=== PATIENT | female | born 1955 | race Caucasian/White ===

== ENCOUNTER → 2021-04-30 | Outpatient (CLI) | payer MEDICARE, BC ==
--- NOTE | 2021-04-30 14:31 | BD ---
EXAMINATION TYPE: Axial Bone Density DATE OF EXAM: 04/30/2021 COMPARISON: 11/08/2012 CLINICAL HISTORY: Height: 59.5 IN Weight: 126 LBS RISK FACTORS HISTORY OF: Family History of Osteoporosis: YES MOTHER Active: YES Postmenopausal woman: AGE 50 Take estrogen and/or progesterone medications: NOT NOW How long: TOOK CONTROL FOR 5 YEARS MEDICATIONS: Additional Medications: STATIN MEDS, LOPRESSOR, METOPROLOL, HCTZ, Additional History: BREAST CANCER WITH RADIATION WITH RADIATION EXAM MEASUREMENTS: Bone mineral densitometry was performed using the [employer]. Bone mineral density as measured about the Lumbar spine is: ----- L1-L4(G/cm2): 1.140 T Score Values are as follows: ----- L2: -0.1 ----- L3: -0.2 ----- L4: -1.3 ----- L1-L4: -0.3 Bone mineral density has: Decreased -3.0% since study of: 11/08/2012 Bone mineral density about the R hip (g/cm2): 1.010 Bone mineral density about the L hip (g/cm2): 1.005 T Score values are as follows: -----R Neck: -0.2 -----L Neck: -0.2 -----R Total: 0.3 -----L Total: 0.4 Bone mineral density has: Decreased -4.9% since study of: 11/08/2012 IMPRESSION: No evidence for osteoporosis or osteopenia NOTE: T-SCORE=SD OF THE YOUNG ADULT MEAN.
== END | disposition home or self-care (01) ==
LOC: RADBDWWP 12:57
PROVIDERS: ATTEND Internal Medicine Hematology & Oncology
DX: C50.912 Malignant neoplasm of unspecified site of left female breast (principal)
CPT/HCPCS: 77080

== ENCOUNTER → 2022-09-09 | Outpatient (CLI) | payer MEDICARE, BC ==
[2022-09-09 13:56] LABS: African American GFR (CKD) >90 (>60 ml/min/1.73 sqM); Blood Urea Nitrogen 19 mg/dL (7-17); Non-African American GFR(CKD) >90 (>60 ml/min/1.73 sqM)
--- NOTE | 2022-09-09 16:20 | CT ---
EXAMINATION TYPE: CT facial bones w con DATE OF EXAM: 09/09/2022 COMPARISON: None HISTORY: 67-year-old female M26.601, right TMJ disorder, H92.01 right ear pain. TECHNIQUE: Contiguous axial scanning of the facial bones performed with IV Contrast, patient injected with 100 mL of Isovue 300. Coronal reconstructions performed. CT DLP: 556.9 mGycm Automated exposure control for dose reduction was used. FINDINGS: Some asymmetric prominent right arytenoid cartilage calcifications noted. Rightward nasal septal deviation. Trace mucosal thickening floors of the maxillary sinuses and also involving the bilateral ethmoid air cells. Frontal and sphenoid sinuses are well pneumatized. No air-fluid levels. No acute fracture of the facial bones. Orbits and globes are intact. The osteomeatal complexes are patent. There is mild degenerative change of the bilateral TMJs that appears relatively symmetric from side t o side. No subluxation or dislocation is seen. Visualized mastoid air cells are pneumatized. IMPRESSION: 1. RELATIVELY SYMMETRIC MILD BILATERAL TMJ OA. 2. 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 3. SLIGHT RIGHTWARD NASAL SEPTAL DEVIATION.
== END | disposition home or self-care (01) ==
LOC: RADCTMAIN 13:10
PROVIDERS: ATTEND Otolaryngology
DX: J34.2 Deviated nasal septum (principal); M26.601 Right temporomandibular joint disorder, unspecified; H92.01 Otalgia, right ear
CPT/HCPCS: 82565; 84520; 70487; 36415; Q9967

== ENCOUNTER 2024-08-21 13:16 | Emergency (ER) | payer BC, MEDICARE, OTHER ==
[2024-08-21 13:26] VITALS: RESP 18; TEMP 97.9
--- NOTE | 2024-08-21 13:44 | ED ---
Fall HPI - General Chief Complaint: Fall Stated Complaint: Fall Time Seen by Provider: 08/21/24 13:20 Source: patient, EMS, RN notes reviewed Mode of arrival: EMS Limitations: no limitations - History of Present Illness Initial Comments: This is a 69-year-old female who presents to the emergency department for a fall. Patient tripped on her shoes at work and fell, hitting the left side of her head and hurting her left arm. She has since had severe pain over the left shoulder has a bleeding wound to the left side of her head. Denies any loss of consciousness. Not taking any blood thinners. Tetanus vaccine is up-to-date. MD Complaint: fall - Related Data Previous Rx's Medication Instructions Recorded Ketorolac [Toradol] 10 mg PO Q6HR PRN #15 tab 08/21/24 methocarbamoL [Robaxin-750] 1,500 mg PO TID PRN #30 tab 08/21/24 Allergies Allergy/AdvReac Type Severity Reaction Status Date / Time bacitracin Allergy Anaphylaxis Verified 08/21/24 13:24 [From Neosporin ([id number])] codeine Allergy Rash/Hives Verified 08/21/24 13:24 neomycin Allergy Anaphylaxis Verified 08/21/24 13:24 [From Neosporin ([id number])] Penicillins Allergy Rash/Hives Verified 08/21/24 13:24 polymyxin B Allergy Anaphylaxis Verified 08/21/24 13:24 [From Neosporin ([id number])] Sulfa (Sulfonamide Allergy Rash/Hives Verified 08/21/24 13:24 Antibiotics) Review of Systems ROS Statement: Those systems with pertinent positive or pertinent negative responses have been documented in the HPI. ROS Other: All systems not noted in ROS Statement are negative. Past Medical History Additional Past Medical History / Comment(s): Meniere's disease History of Any Multi-Drug Resistant Organisms: None Reported Additional Past Surgical History / Comment(s): Double mastectomy, fallopian tube and ovary removed on L side Past Psychological History: No Psychological Hx Reported Smoking Status: Never smoker Past Alcohol Use History: Occasional Past Drug Use History: None Reported General Exam Limitations: no limitations General appearance: alert, in no apparent distress Head exam: Present: other (Laceration to the left side of her head with mild active bleeding) Eye exam: Present: normal appearance, PERRL, EOMI. Absent: scleral icterus, conjunctival injection, periorbital swelling Respiratory exam: Present: normal lung sounds bilaterally. Absent: respiratory distress, wheezes, rales, rhonchi, stridor Cardiovascular Exam: Present: regular rate, normal rhythm, normal heart sounds. Absent: systolic murmur, diastolic murmur, rubs, gallop, clicks Extremities exam: Present: other (Tenderness to palpation over the left shoulder. Range of motion limited by pain. 2+ radial pulses.) Neurological exam: Present: alert, oriented X3, CN II-XII intact Psychiatric exam: Present: normal affect, normal mood Skin exam: Present: warm, dry, intact, normal color. Absent: rash Course Vital Signs 08/21/24 08/21/24 13:17 16:55 Temperature 97.9 F 97.9 F Pulse Rate 81 64 Respiratory 18 18 Rate Blood Pressure 136/80 113/68 O2 Sat by Pulse 100 97 Oximetry Procedures - Laceration Laceration #1 Consent Obtained: verbal consent Indication: laceration Site: scalp Size (cm): 3 Description: linear Depth: simple, single layer Size of Sutures: other (Chris) Number of Sutures: 3 Medical Decision Making - Medical Decision Making This is a 69 year old female who presents to the emergency department for a fall. Was pt. sent in by a medical professional or institution? @ -No Did you speak to anyone other than the patient for history? @ -No Did you review nursing and triage notes? @ -Yes, and I agree, it is accurate with regards to the patient's symptoms. Were old charts reviewed? @ -No Differential Diagnosis? @ -Differential Diagnosis Head Injury: Contusion, hematoma, intracranial hemorrhage, skull fracture, whiplash, concussion, this is not meant to be an all-inclusive list. EKG interpreted by me (3pts min.)? @ -Not obtained X-rays interpreted by me (1pt min.)? @ -X-ray of the left shoulder and humerus obtained. My interpretation identifies no acute fractures. CT interpreted by me (1pt min.)? @ -Computed tomography scan of the brain and c-spine obtained. My interpretation identifies no evidence of an acute intracranial hemorrhage, skull fracture, or cervical spine fracture. U/S interpreted by me (1pt. min.)? @ -Not obtained What testing was considered but not performed? (CT, X-rays, U/S, labs)? Why? @ -None What meds were considered but not given? Why? @ -None Did you discuss the management of the patient with other professionals? @ -No Did you reconcile home meds? @ -No Was smoking cessation discussed for >3mins.? @ -No Was critical care preformed (if so, how long)? @ -No Were there social determinants of health that impacted care today? How? (Homelessness, low income, unemployed, alcoholism, drug addiction, transportation, low edu. Level, literacy, decrease access to med. care, halfway, rehab)? @ -No Was there de-escalation of care discussed even if they declined? (Discuss DNR or withdrawal of care, Hospice)? @ -No What co-morbidities impacted this encounter? (DM, HTN, Smoking, COPD, CAD, Cancer, CVA, Hep., AIDS, mental health diagnosis, sleep apnea, morbid obesity)? @ -None Was patient admitted / discharged? @ -Discharged. CT scan of the brain and C-spine obtained revealing no acute process. X-ray of the left shoulder and humerus obtained also revealing no acute injuries. The laceration on her head was cleansed and repaired with chris. Tetanus vaccine is already up-to-date. Pain managed in the emergency department. Prescription for Toradol and Robaxin provided. Advised returning in 10 to 14 days for staple removal and following up with her PCP for reevaluation. Patient discharged home in stable condition. Case discussed with ED attending, Dr. Knapp. Return precautions reviewed in depth, the patient is instructed to return to the emergency department with any new, worsening, or concerning symptoms. Patient verbalized understanding. Undiagnosed new problem with uncertain prognosis? @ -None Drug Therapy requiring intensive monitoring for toxicity (Heparin, Nitro, Insulin, Cardizem)? @ -None Were any procedures done? @ -Laceration repair with chris Diagnosis/symptom? @ -Fall, head injury, left shoulder contusion Acute, or Chronic, or Acute on Chronic? @ -Acute Uncomplicated (without systemic symptoms) or Complicated (systemic symptoms)? @ -Uncomplicated Side effects of treatment? @ -None Exacerbation, Progression, or Severe Exacerbation] @ -Not applicable Poses a threat to life or bodily function? @ -No - Radiology Data Radiology results: report reviewed, image reviewed Disposition Clinical Impression: Fall, Head injury, Contusion of left shoulder Disposition: HOME SELF-CARE Instructions (If sedation given, give patient instructions): Staple Care (ED) Additional Instructions: Return to the emergency department with any new, worsening, or concerning symptoms and in 10 to 14 days to have the chirs removed. Take the Toradol with Tylenol as needed for pain relief. If you choose to take the Toradol, do not take any other anti-inflammatories such as ibuprofen, take one or the other. Take the Robaxin as 1 to 2 tablets up to 3-4 times daily. Prescriptions: methocarbamoL [Robaxin-750] 1,500 mg PO TID PRN #30 tab PRN Reason: Pain Ketorolac [Toradol] 10 mg PO Q6HR PRN #15 tab PRN Reason: Pain Is patient prescribed a controlled substance at d/c from ED?: No Referrals: Mariaelena Ellington MD [Primary Care Provider] - 1-2 days Time of Disposition: 16:21
[2024-08-21] MEDS: HYDROmorphone 0.5 MG/0.5 ML SYRINGE IVP STA ×2 (13:58→16:14)
--- NOTE | 2024-08-21 15:13 | CT ---
EXAMINATION TYPE: CT brain rita wo con DATE OF EXAM: 08/21/2024 COMPARISON: None CLINICAL INDICATION: Female, 69 years old with history of Fall; PHH, FALL TECHNIQUE: CT scan of the head and cervical spine are performed without contrast. CT DLP: 1305.[address] CTDI: mGy Automated exposure control for dose reduction was used. Findings: Head CT: Ventricles, basal cisterns and sulci over convexities within normal limits and there is no mass, mass effect or shift of midline structures. No abnormal density is seen throughout the brain parenchyma and there is no acute intra or extra-axia l hemorrhage. Posterior fossa including the brainstem, fourth ventricle and cerebellar pontine angles are grossly n ormal. The intraorbital contents appear normal and symmetric. Visualized paranasal sinuses are well aerated. CT cervical spine: Craniovertebral junction relationships and prevertebral soft tissues are normal. The cervical vertebral segments are normal in height and alignment and there is no fracture subluxati on. There is mild degenerative disease at the C5-6 C6 disc 6. There is a slight anterolisthesis of C4 on C5 The bony cervical canal is widely patent and there is no bony encroachment of the neural foramina. The paraspinal soft tissues unremarkable. IMPRESSION: 1. Head CT: No acute bleed or mass effect. 2. CT cervical spine: No acute trauma. Mild degenerative changes as described above. [facility], , 08/21/2024 3:11 PM
--- NOTE | 2024-08-21 16:01 | XR ---
Left shoulder. HISTORY: Pain following trauma. COMPARISON: None TECHNIQUE: 3 views of left shoulder were obtained. FINDINGS: There is no fracture, dislocation, intraosseous, intra-articular or soft tissue abnormality. IMPRESSION: No evidence of acute trauma. No significant abnormality seen. [facility], Workstation: [facility], 08/21/2024 3:59 PM
--- NOTE | 2024-08-21 16:02 | XR ---
Left humerus HISTORY: Pain following trauma COMPARISON: None TECHNIQUE: 3 views of the left humerus are obtained. FINDINGS: There is no fracture or focal intraosseous abnormality. The soft tissues are unremarkable. IMPRESSION: No significant abnormality seen. No acute trauma. [facility], Workstation: [facility], 08/21/2024 4:00 PM
[2024-08-21] MEDS: KETOROLAC 15 MG/ML 1 ML VIAL IVP STA (16:12)
[2024-08-21] MEDS: ONDANSETRON 4 MG/2 ML VIAL IVP STA (16:27)
[2024-08-21] MEDS: traMADol 50 MG STARTER PACK 3 TAB BTL PO STA (16:27)
[2024-08-21] MEDS: ONDANSETRON 4 MG ODT STARTER PACK 2 TAB BTL PO STA (16:28)
[2024-08-21 16:56] VITALS: BP 113/68; PULSE 64
== END 2024-08-21 17:01 | disposition home or self-care (01) ==
LOC: EC 13:16
DX: S40.012A Contusion of left shoulder, initial encounter (principal); S09.90XA Unspecified injury of head, initial encounter; Z88.2 Allergy status to sulfonamides; Z88.0 Allergy status to penicillin; Z88.8 Allergy status to other drugs, medicaments and biological substances; W01.0XXA Fall on same level from slipping, tripping and stumbling without subsequent striking against object, initial encounter
CPT/HCPCS: 73030; 73060; 72125; 70450; 99285; 96374; 96375 ×2; 96376; J2405; J1885; S0119; J1171